=== PATIENT | female | born 1985 | race American Indian/Alaskan Native ===

== ENCOUNTER 2016-08-20 21:29 | Emergency (ER) | payer OTHER ==
[2016-08-20 21:46] VITALS: BP 127/88; PULSE 82; RESP 20; TEMP 98.1; O2SAT 99; BMI 24.3
[2016-08-20] MEDS ORDERED: Oxycodone/Acetaminophen 5/325 mg Tab PO STA (21:54)
--- NOTE | 2016-08-20 21:55 | ED PDOC ---
Arrival/HPI <Jose Cruz Victor - Last Filed: 08/20/16 22:07> - General Historian: Patient <Singh Kurtz - Last Filed: 08/20/16 22:41> - General Time Seen by Provider: 08/20/16 21:46 - History of Present Illness Narrative History of Present Illness (Text): 08/20/16 21:53 31 y/o female, no pmh, nkda, c/o rt. shoulder rash which is painful x 3 days. Burning pain, no fever or chills, no headache or night sweat, no numbness or tingling, no other medical or psychological complaints. (Singh Kurtz) Past Medical History - Provider Review Nursing Documentation Reviewed: Yes <Singh Kurtz - Last Filed: 08/20/16 22:41> Family/Social History - Physician Review Nursing Documentation Reviewed: Yes Family/Social History: Unknown Family HX <Singh Kurtz - Last Filed: 08/20/16 22:41> Allergies/Home Meds <Jose Cruz Victor - Last Filed: 08/20/16 22:07> <Singh Kurtz - Last Filed: 08/20/16 22:41> Allergies/Adverse Reactions: Allergies No Known Allergies Allergy (Verified 08/20/16 21:54) Review of Systems - Review of Systems Constitutional: absent: Fatigue, Fevers Eyes: absent: Vision Changes ENT: absent: Hearing Changes Respiratory: absent: Cough Cardiovascular: absent: Chest Pain Gastrointestinal: absent: Nausea, Vomiting Skin: Rash, Skin Lesions. absent: Pruritis, Laceration, Abscess, Ulcer, Cellulitis Neurological: absent: Headache, Dizziness, Focal Weakness, Gait Changes, Speech Changes, Facial Droop, Disequilibrium, Seizure <Singh Kurtz - Last Filed: 08/20/16 22:41> Physical Exam Vital Signs Reviewed: Yes Temperature: Afebrile Blood Pressure: Normal Pulse: Regular Respiratory Rate: Normal Appearance: Positive for: Well-Appearing, Non-Toxic, Comfortable Pain Distress: Moderate Mental Status: Positive for: Alert and Oriented X 3 - Systems Exam Head: Present: Atraumatic, Normocephalic Pupils: Present: PERRL Extroacular Muscles: Present: EOMI Conjunctiva: Present: Normal Mouth: Present: Moist Mucous Membranes Neck: Present: Normal Range of Motion Respiratory/Chest: Present: Clear to Auscultation, Good Air Exchange. No: Respiratory Distress, Accessory Muscle Use Cardiovascular: Present: Regular Rate and Rhythm, Normal S1, S2. No: Murmurs Abdomen: Present: Normal Bowel Sounds. No: Tenderness, Distention, Peritoneal Signs Back: Present: Normal Inspection Upper Extremity: Present: Normal Inspection. No: Cyanosis, Edema Lower Extremity: Present: Normal Inspection. No: Edema Neurological: Present: GCS=15, Speech Normal, Motor Func Grossly Intact, Gait Normal, Memory Normal Skin: Present: Warm, Dry, Rashes (Rt. trapezius region visible cluster vesicular rash which is unilateral following C4 dermatomes pattern. ), Normal Color Psychiatric: Present: Alert, Oriented x 3, Normal Insight, Normal Concentration <Singh Kurtz - Last Filed: 08/20/16 22:41> Vital Signs Temp Pulse Resp BP Pulse Ox 08/20/16 21:46 98.1 F 82 20 127/88 99 08/20/16 21:45 98.1 F 82 20 127/88 99 Medical Decision Making <Jose Cruz Victor - Last Filed: 08/20/16 22:07> <Singh Kurtz - Last Filed: 08/20/16 22:41> ED Course and Treatment: 08/20/16 21:55 -percocet, valtrex, prednisone -Discharge home with valtrex, prednisone, motrin, avoid rubbing or touching the rash, contact precaution, follow up with your own pmd within 2 days, keep the skin cool and dry, return to the ER for any new or worsening signs or symptoms ( Singh Kurtz) - Medication Orders Current Medication Orders: Discontinued Medications Oxycodone/Acetaminophen (Percocet 5/325 Mg Tab) 1 tab PO STAT STA Stop: 08/20/16 21:55 Last Admin: 08/20/16 22:17 Dose: 1 tab Prednisone (Prednisone Tab) 60 mg PO STAT ONE Stop: 08/20/16 21:55 Last Admin: 08/20/16 22:17 Dose: 60 mg Valacyclovir HCl (Valtrex) 1 gm PO STAT STA PRN Reason: Protocol Stop: 08/20/16 21:55 Last Admin: 08/20/16 22:17 Dose: 1 gm - PA / APARTMENT COORDINATOR / Resident Statement NARCISO has reviewed & agrees with the documentation as recorded. NARCISO has examined the patient and agrees with the treatment plan. <Jose Cruz Victor - Last Filed: 08/20/16 22:07> - PA / APARTMENT COORDINATOR / Resident Statement NARCISO has reviewed & agrees with the documentation as recorded. <Singh Kurtz - Last Filed: 08/20/16 22:41> Disposition/Present on Arrival <Jose Cruz Victor - Last Filed: 08/20/16 22:07> - Present on Arrival Any Indicators Present on Arrival: No History of DVT/PE: No History of Uncontrolled Diabetes: No Urinary Catheter: No History of Decub. Ulcer: No - Disposition Have Diagnosis and Disposition been Completed?: Yes Disposition Time: 21:58 Patient Plan: Discharge <Singh Kurtz - Last Filed: 08/20/16 22:41> - Disposition Diagnosis: Shingles rash Disposition: HOME/ ROUTINE Condition: GOOD Discharge Instructions (ExitCare): Shingles (ED) Additional Instructions: Discharge home with valtrex, prednisone, motrin, avoid rubbing or touching the rash, contact precaution, follow up with your own pmd within 2 days, keep the skin cool and dry, return to the ER for any new or worsening signs or symptoms Prescriptions: Ibuprofen [Motrin Tab] 600 mg PO QID PRN #24 tab PRN Reason: Other predniSONE [Prednisone] 2 tab PO DAILY #8 tab Valacyclovir HCl [Valtrex] 1 gm PO TID #21 tablet Referrals: Eboni Gloria MD [Staff Provider] - Follow up with primary [facility] [place] - Follow up with primary Forms: WORK NOTE
== END 2016-08-20 22:30 | disposition home or self-care (01) ==
LOC: ED 21:29
DX: B02.9 Zoster without complications (principal)

== ENCOUNTER 2018-04-26 07:03 | Emergency (ER) | payer OTHER ==
[2018-04-26 07:20] VITALS: BMI 22.4
[2018-04-26 07:25] VITALS: BP 136/84; PULSE 88; RESP 16; TEMP 99.4; O2SAT 99
[2018-04-26] MEDS ORDERED: Lidocaine 5% Patch TD STA (07:25)
--- NOTE | 2018-04-26 07:30 | ED PDOC ---
Arrival/HPI - General Chief Complaint: Back Pain Time Seen by Provider: 04/26/18 07:12 Historian: Patient - History of Present Illness Narrative History of Present Illness (Text): 04/26/18 07:29 33 year old female, whose past medical history includes anemia, presents to the emergency department complaining of back pain, for the past 2 weeks. She notes she woke up one day with the presenting symptoms. Patient states she has not seen her primary care doctor for the pain because she thought it would go away, but the pain has progressively worsened since onset. Patient reports the pain worsens with movement, she can not get out of bed, and the pain radiates to the entire lower back and tailbone region. Of note, Patient has been taking ibuprofen with no relief. She denies injury or trauma to the area, fevers, chills, headache, dizziness, chest pain, shortness of breath, dyspnea on exertion, cough, abdominal pain, nausea, vomiting, diarrhea, neck pain, or any other complaint. PMD: Dr. Kelsey Time/Duration: < month (2 weeks ) Symptom Course: Worsening Activities at Onset: Light Context: Home Past Medical History - Provider Review Nursing Documentation Reviewed: Yes - Infectious Disease Hx of Infectious Diseases: None - Reproductive Menopause: No - Cardiac Hx Cardiac Disorders: No - Pulmonary Hx Respiratory Disorders: No - Neurological Hx Neurological Disorder: No - HEENT Hx HEENT Disorder: No - Renal Hx Renal Disorder: No - Endocrine/Metabolic Hx Endocrine Disorders: No - Hematological/Oncological Hx Anemia: Yes - Integumentary Hx Dermatological Disorder: No - Musculoskeletal/Rheumatological Hx Musculoskeletal Disorders: No - Gastrointestinal Hx Gastrointestinal Disorders: No - Genitourinary/Gynecological Hx Genitourinary Disorders: No - Psychiatric Hx Psychophysiologic Disorder: No Hx Substance Use: No - Surgical History Hx Tonsillectomy: Yes - Anesthesia Hx Anesthesia: Yes Family/Social History - Physician Review Nursing Documentation Reviewed: Yes Family/Social History: No Known Family HX Smoking Status: Never Smoked Hx Alcohol Use: Yes Hx Substance Use: No Allergies/Home Meds Allergies/Adverse Reactions: Allergies No Known Allergies Allergy (Verified 08/20/16 21:54) Review of Systems - Physician Review All systems were reviewed & negative as marked: Yes - Review of Systems Constitutional: absent: Fevers Eyes: absent: Vision Changes Respiratory: absent: SOB, Cough Cardiovascular: absent: Chest Pain Gastrointestinal: absent: Abdominal Pain, Diarrhea, Nausea, Vomiting Genitourinary Female: absent: Dysuria, Frequency Musculoskeletal: Back Pain. absent: Neck Pain Neurological: absent: Headache, Dizziness Physical Exam Vital Signs Reviewed: Yes Vital Signs Temp Pulse Resp BP Pulse Ox 04/26/18 07:20 99.4 F 88 16 136/84 99 Temperature: Afebrile Blood Pressure: Normal Pulse: Regular Respiratory Rate: Normal Appearance: Positive for: Well-Appearing, Non-Toxic, Comfortable Pain Distress: None Mental Status: Positive for: Alert and Oriented X 3 - Systems Exam Head: Present: Atraumatic, Normocephalic Pupils: Present: PERRL Extroacular Muscles: Present: EOMI Conjunctiva: Present: Normal Mouth: Present: Moist Mucous Membranes Neck: Present: Normal Range of Motion Respiratory/Chest: Present: Clear to Auscultation, Good Air Exchange. No: Respiratory Distress, Accessory Muscle Use Cardiovascular: Present: Regular Rate and Rhythm, Normal S1, S2. No: Murmurs Abdomen: No: Tenderness, Distention, Peritoneal Signs Back: Present: Normal Inspection, Paraspinal Tenderness (lower lumbar paraspinal tenderness), Pain with Leg Raise (bilateral lower leg raise test ), Other (lower sciatica tenderness ). No: Midline Tenderness Upper Extremity: Present: Normal Inspection. No: Cyanosis, Edema Lower Extremity: Present: Normal Inspection. No: Edema Neurological: Present: GCS=15, CN II-XII Intact, Speech Normal Skin: Present: Warm, Dry, Normal Color. No: Rashes Psychiatric: Present: Alert, Oriented x 3, Normal Insight, Normal Concentration Medical Decision Making ED Course and Treatment: 04/26/18 07:29 Impression: 33 year old female who presents to the emergency department complaining of back pain. Differential Diagnosis included but are not limited to: lumbar sprain sciatica Plan: -- Fleceril -- Lidoderm -- Toradol -- LS with OBL X-ray -- Reassess and disposition Prior Visits: Notes and results from previous visits were reviewed. Progress Notes: 04/26/18 08:52 Patient is feeling better. She is able to sit up more comfortably. She is walking without ataxia. No numbness or weakness. She had no incontinence issues. She will be discharged with Flexeril. Motrin and Lidoderm and will make sure to f/u with her primary doctor in 1-2days. - RAD Interpretation Radiology Orders: 04/26/18 07:25 LS SPINE WITH OBL > 18 YRS OLD [RAD] Stat - Medication Orders Current Medication Orders: Cyclobenzaprine HCl (Flexeril) 10 mg PO STAT STA Stop: 04/26/18 07:26 Ketorolac Tromethamine (Toradol) 60 mg IM STAT STA Stop: 04/26/18 07:26 Lidocaine (Lidoderm) 1 ea TD STAT STA Stop: 04/26/18 07:26 - Scribe Statement The provider has reviewed the documentation as recorded by the Scribe Cayla Colon Provider Scribe Attestation: All medical record entries made by the Scribe were at my direction and personally dictated by me. I have reviewed the chart and agree that the record accurately reflects my personal performance of the history, physical exam, medical decision making, and the department course for this patient. I have also personally directed, reviewed, and agree with the discharge instructions and disposition. Disposition/Present on Arrival - Present on Arrival Any Indicators Present on Arrival: No History of DVT/PE: No History of Uncontrolled Diabetes: No Urinary Catheter: No History of Decub. Ulcer: No History Surgical Site Infection Following: None - Disposition Have Diagnosis and Disposition been Completed?: Yes Diagnosis: Back pain Disposition: HOME/ ROUTINE Disposition Time: 08:53 Patient Plan: Discharge Patient Problems: Current Active Problems Problem Status Onset Back pain Acute Condition: IMPROVED Discharge Instructions (ExitCare): Low Back Pain in Adults Additional Instructions: RAMON MIDDLETON, thank you for letting us take care of you today. Your provider was Petr Solo DO and you were treated for Lower Back Pain. The emergency medical care you received today was directed at your acute symptoms. If you were prescribed any medication, please fill it and take as directed. It may take several days for your symptoms to resolve. Return to the Emergency Department if your symptoms worsen, do not improve, or if you have any other problems. Please contact your doctor or call one of the physicians/clinics you have been referred to that are listed on the Patient Visit Information form that is included in your discharge packet. Bring any paperwork you were given at dis charge with you along with any medications you are taking to your follow up visit. Our treatment cannot replace ongoing medical care by a primary care provider outside of the emergency department. Thank you for allowing the [facility] team to be part of your care today. If you had an X-Ray or CT scan: A Radiologist will review the ED reading if any change in treatment is needed we will contact you. If you had a blood, urine, or wound culture: It will take several days for the results, if any change in treatment is needed we will contact you. If you had an STI test: It will take 48 hours for the results. Please call after 1 week if you have not heard back. Prescriptions: Cyclobenzaprine [Flexeril] 5 mg PO TID PRN #20 tab PRN Reason: Muscle Spasm Ibuprofen [Motrin] 600 mg PO Q6 PRN #30 tab PRN Reason: Pain, Moderate (4-7) Lidocaine 5% [Lidoderm] 1 ea TD DAILY PRN #4 patch PRN Reason: Pain, Moderate (4-7) Referrals: [facility] Edith Remara, [Non-Staff] - Follow up with primary Forms: [employer] ([place]), WORK NOTE
--- NOTE | 2018-04-26 09:00 | RAD ---
Date of service: 04/26/2018 PROCEDURE: Radiographs of the Lumbar Spine. HISTORY: back pain r/o fx COMPARISON: No prior. FINDINGS: BONES: Normal alignment. No listhesis. No fracture. DISC SPACES: Unremarkable. OTHER FINDINGS: None. IMPRESSION: Unremarkable radiographs of the lumbar spine.
== END 2018-04-26 08:53 | disposition home or self-care (01) ==
LOC: ED 07:03
DX: M54.9 Dorsalgia, unspecified (principal)
CPT/HCPCS: 72110; 81025; 96372; 99283; J1885